=== PATIENT | female | born 1985 ===

== ENCOUNTER 2019-07-21 12:31 | Emergency (ER) | payer OTHER ==
[~2019-07-21] VITALS: Ht 154.9 cm; Wt 85.7 kg
[2019-07-21] MEDS ORDERED: VENTOLIN HFA18 GM IH (12:49)
[2019-07-21] MEDS ORDERED: SINGULAIR10 MG PO (12:49)
[2019-07-21] MEDS ORDERED: ALBUTEROL NASAL (12:50)
[2019-07-21] MEDS ORDERED: SYMBICORT 16010.2 GM IH (12:51)
== END 2019-07-21 18:15 | disposition home or self-care (01) ==
LOC: ER 12:31
DX: J45.998 Other asthma (principal)